=== PATIENT | male | born 1960 | race Caucasian/White ===

== ENCOUNTER 2017-01-14 14:23 | Inpatient (IN) | payer OTHER ==
[~2017-01-14] VITALS: Ht 190.5 cm; Wt 116.9 kg
[~2017-01-14 14:23] MED LIST: BETAPACE DPS80 MG PO; CARDIZEM CD DP120 MG PO; CARDIZEM CD180 MG PO; CUBICIN500 MG IV; CULTURELLE1 CAP PO; DULERA 100/58.8 GM IH; DUONEB DPS3 ML IH; DUONEB DPS3 ML PO; GLUCOPHAGE-DPS500 MG PO; HABITROL DPS21 MG TD; INVANZ1 GM IV; LASIX DPS40 MG PO; LIPITOR DPS40 MG PO; NICOTROL N10 MG/1 ML MS; PLAVIX75 MG PO; XARELTO20 MG PO
--- NOTE | 2017-01-18 12:29 | ER ---
ADMIT: 01/14/2017 RM/LOC: 405 [facility] MR#: [id number] [address] [address] SHAJI KIRBY [address] [place] [address] Emergency Room Report SEX: M AGE: 56 : 1960 DATE: 01/14/2017 ADDENDUM: A 56-year-old white male with recurrent sepsis coming in. White count 25,000 lactate 2.1. Chemistry appears to be normal. Chest x-ray has left pleural effusion. I spoke with Dr. Castaneda. We will admit him. We gave him vanc and aztreonam. At this time, we are going to admit him. He has had all the sepsis workup and medication. He has not been hypotensive, so he does not need the fluid. CONDITION ON DISCHARGE: Serious but stable. Suman Jean MD/ gerard JOB #: [id number] CC: Carlton Murguia DO, Attending Physician Carlton Murguia DO, Family Physician
[2017-01-18] MEDS ORDERED: ATORVASTATIN CA40 MG PO (20:11)
[2017-01-18] MEDS ORDERED: PLAVIX75 MG PO (20:11)
[2017-01-18] MEDS ORDERED: TIAZAC180 MG PO (20:11)
[2017-01-18] MEDS ORDERED: XARELTO20 MG PO (20:12)
[2017-01-18] MEDS ORDERED: BETAPACE DPS80 MG PO (20:12)
[2017-01-18] MEDS ORDERED: GLUCOPHAGE-DPS500 MG PO (20:12)
[2017-01-18] MEDS ORDERED: LASIX DPS40 MG PO (20:12)
[2017-01-18] MEDS ORDERED: VIBRAMYCIN-DPS100 M1 PO (20:13)
[2017-01-18] MEDS ORDERED: NICOTROL N10 MG/1 ML IN (20:13)
[2017-01-18] MEDS ORDERED: KLOR-CON M2020 ME1 PO (20:13)
--- NOTE | 2017-01-21 08:25 | HP ---
ADMIT: 01/14/2017 RM/LOC: [facility] MR#: [id number] [id number] [facility] [address] [place] [id number] SHAJI KIRBY [address] [place] [address] History and Physical SEX: M AGE: 56 : 1960 DATE OF SERVICE: 01/15/2017 REASON FOR HOSPITALIZATION: Cellulitis. HISTORY OF PRESENT ILLNESS: This is a 56-year-old male patient, who presented with fever and the development of left lower leg erythema, warmth, and tenderness. He has a history of recurrent cellulitis in the lower extremities as well as group C strep bacteremia. He came to the emergency room, he is admitted for a progressive cellulitis and fever. PAST MEDICAL HISTORY: Again, history of group C strep bacteremia, COPD, lymphedema, atrial fibrillation, angioedema secondary to an antibiotic reaction, hypercholesterolemia, diabetes. SOCIAL HISTORY: He has a history of smoking. He is . FAMILY HISTORY: Noncontributory. MEDICATIONS: Consist of: 1. Diltiazem ER 180 mg daily. 2. Atorvastatin 40 mg daily. 3. Clopidogrel 75 mg daily. 4. Xarelto 20 mg daily. 5. Furosemide 40 mg daily. 6. Metformin 500 mg b.i.d. 7. Sotalol 80 mg b.i.d. 8. Nicotrol 1 puff q.4 as needed. REVIEW OF SYSTEMS: He has no chest pain, shortness of breath, cough, sputum production. He has had fever. No nausea, vomiting, diarrhea, or bleeding. His cellulitis just developed that he noted as he was getting out of the shower within the last 48 hours. It has been rapidly progressive. PHYSICAL EXAMINATION: GENERAL: He is pleasant, alert. VITAL SIGNS: Temperature max 102.7, temperature current is afebrile. HEART: Regular. ADMIT: 01/14/2017 RM/LOC: 405 [facility] MR#: [id number] [address] [id number] KOFIWILVER MARCOSSherron Garcia [address] [facility] [place] [address] History and Physical SEX: M AGE: 56 : 1960 LUNGS: Distant, but clear. ABDOMEN: Soft. EXTREMITIES: He has erythema and warmth above the knee from the mid ankle area and obvious cellulitis. LABORATORY DATA: His white count has dropped from 25.7 to 20.4, hemoglobin is 12.6, lactate 2.1 and 2.0 consecutively. Cultures are pending. IMPRESSION: Cellulitis and diabetes. PLAN: Admit, IV Merrem, IV vancomycin. Monitor and manage his diabetes and continue his cardiac meds. Carlton Murguia DO/ modl JOB #: [id number] CC: Carlton Murguia, Attending Physician Carlton Murguia, Family Physician
--- NOTE | 2017-02-26 10:51 | DS ---
ADMIT: 01/14/2017 RM/LOC: 405 [facility] MR#: [id number] [id number] [facility] [address] [place] [id number] SHAJI KIRBY [address] [place] [address] Discharge Summary SEX: M AGE: 56 : 1960 ADMISSION DATE: 01/14/2017 DISCHARGE DATE: 01/18/2017 REASON FOR HOSPITALIZATION: Cellulitis, diabetes. HISTORY OF PRESENT ILLNESS: A 56-year-old male patient, presented with fever, recurrent left leg cellulitis. He has a history of group C strep bacteremia, COPD, lymphedema, atrial fibrillation, angioedema, secondary to antibiotic reaction, hyperlipidemia, and diabetes. HOSPITAL COURSE: He was admitted and was started on Merrem and vancomycin. Continue diabetic management. Blood sugar monitoring and leg elevation. On 01/16, his blood cultures were not showing any growth. He still had erythema and warmth. We continued antibiotics. We replaced his hypokalemia. On 01/18, he was doing well. His erythema was fading. He was not febrile, and we felt we could safely send him home. FINAL DIAGNOSES: 1. Cellulitis. 2. Diabetes. He was return to see me within 7 to 10 days and stay on doxycycline 100 mg p.o. b.i.d. for two weeks. DISCHARGE MEDICATIONS: He is also dismissed on his usual therapies of: 1. Betapace. 2. Glucophage. 3. Klor-Con. 4. Lasix. 5. Lipitor. 6. Plavix. 7. Tiazac. 8. Xarelto. For specifics of dosing, please refer to his dismissal orders. Carlton Murguia DO/ gerard JOB #: [id number] CC: Carlton Murguia DO, Attending Physician Carlton Murguia DO, Family Physician
== END 2017-01-18 10:20 | disposition home or self-care (01) | DRG 603 ==
LOC: ER 14:23 → 4PCU 16:45
PROVIDERS: ADMIT Internal Medicine
DX: L03.116 Cellulitis of left lower limb (principal); I48.91 Unspecified atrial fibrillation; J44.9 Chronic obstructive pulmonary disease, unspecified; E78.00 Pure hypercholesterolemia, unspecified; I89.0 Lymphedema, not elsewhere classified; E87.6 Hypokalemia; E11.9 Type 2 diabetes mellitus without complications; Z87.891 Personal history of nicotine dependence; Z79.01 Long term (current) use of anticoagulants; Z79.84 Long term (current) use of oral hypoglycemic drugs

== ENCOUNTER → 2017-02-01 | Outpatient (CLI) | payer OTHER ==
[~2017-02-01] MED LIST changes: +ATORVASTATIN CA40 MG PO; +KLOR-CON M2020 ME1 PO; +NICOTROL N10 MG/1 ML IN; +TIAZAC180 MG PO; +VIBRAMYCIN-DPS100 M1 PO
== END | disposition home or self-care (01) ==
LOC: RAD.S 01-31 15:30
DX: R93.8 Abnormal findings on diagnostic imaging of other specified body structures (principal); J90 Pleural effusion, not elsewhere classified; R05 Cough; R06.00 Dyspnea, unspecified; J98.11 Atelectasis; R93.2 Abnormal findings on diagnostic imaging of liver and biliary tract

== ENCOUNTER → 2017-02-15 | Outpatient (CLI) | payer OTHER | END | disposition home or self-care (01) | LOC: RESC 12:55 | DX: R93.8 Abnormal findings on diagnostic imaging of other specified body structures (principal); J90 Pleural effusion, not elsewhere classified; R06.00 Dyspnea, unspecified; R05 Cough ==

== ENCOUNTER → 2017-04-16 | Outpatient (CLI) | payer OTHER ==
--- NOTE | 2017-04-22 13:49 | SS ---
ADMIT: 04/16/2017 RM/LOC: [facility] MR#: [id number] [address] [address] SHAJI KIRBY [address] [place] [address] Sleep Study SEX: M AGE: 56 : 1960 STUDY DATE: 04/16/2017 CLINICAL HISTORY: A 56-year-old male, body mass index of 41.2, 67 inches tall, 263 pounds, who has symptoms of daytime sleepiness, fatigue, undergoing evaluation for obstructive sleep apnea. TECHNICAL DESCRIPTION: Diagnostic polysomnogram performed on night of 04/16/2017, attended by a trained cytogenetic technologist. DIAGNOSTIC POLYSOMNOGRAM FINDINGS: SLEEP: Total time bed 369 minutes, total sleep time 352 minutes, sleep efficient 95.4%. 43.8% hours spent in stage II sleep, 22.5% hours spent in stage REM. BREATHING: Mild obstructive sleep apnea with apnea-hypopnea index of 8.4. During the study, there were 12 central apneas, 28 obstructive apneas, 9 obstructive hypopneas noted. OXYGEN SATURATION: Mean sleeping oxygen saturation 92%. CARDIAC: Average heart rate 56 beats per minute. MOVEMENTS/POSITION: During the study, the patient slept predominantly in the lateral position, brief time in supine position. IMPRESSION/PLAN: Mild obstructive sleep apnea with apnea-hypopnea index of 8.4. Recommend CPAP titration. Recommend losing weight. Recommend avoiding sedative and alcohol. Recommend refrain from driving if excessively sleepy. Recommend avoiding sleeping in supine position. Clinical correlation needed. CPAP titration is recommended. Darren Ceballos MD/ gerard JOB #: [id number] CC: Deven Moore MD, Attending Physician Carlton Murguia DO, Family Physician Deven Moore MD
== END | disposition home or self-care (01) ==
LOC: RESC 20:34
DX: F51.8 Other sleep disorders not due to a substance or known physiological condition (principal); G47.33 Obstructive sleep apnea (adult) (pediatric)